=== PATIENT | male | born 1995 | race Caucasian/White ===

== ENCOUNTER 2017-03-30 05:23 | Inpatient (IN) | payer OTHER ==
[2017-03-22 08:50] VITALS: Ht 190.5 cm; Wt 92.1 kg
--- NOTE | 2017-03-22 09:16 | PAT Medication Instructions ---
Service Date Mar 22, 2017. Current Home Medication List Clonazepam (Klonopin), 1 MG PO PRN Escitalopram (Lexapro), 10 MG PO QPM Ibuprofen Tab (Advil), 400 MG PO PRN [Promethazine], 10-20 MG PO PRN Medication Instructions For Your Scheduled Surgery - Check with surgeon for instructions: Ibuprofen Tab (Advil), 400 MG PO PRN - Take the following medications the morning of surgery with a sip of water: [Promethazine], 10-20 MG PO PRN (if needed) Clonazepam (Klonopin), 1 MG PO PRN (if needed) - Take the following medications as scheduled the night before surgery: [Promethazine], 10-20 MG PO PRN (if needed) Clonazepam (Klonopin), 1 MG PO PRN (if needed) Escitalopram (Lexapro), 10 MG PO QPM If you have any questions please call us at [phone] or [phone] or [phone]
[2017-03-22 10:02] LABS: BASO % 0.4 %; BASO ABS # 0.02 K/uL (0-0.2); COMPLETE YES; EOS % 1.6 %; HEMATOCRIT 44.7 % (42-52); IG% 0.2 %; LYMPH % 35.6 %; LYMPH ABS # 1.78 K/uL (1.2-3.4); MEAN CELL VOLUME 87.3 fL (80-100); MEAN CORPUSCULAR HEMOGLOBIN 30.7 pg (25-34); MEAN CORPUSCULAR HGB CONC 35.1 g/dl (32-36); MEAN PLATELET VOLUME 11.5 fL (7.4-10.4); NEUT % 53.2 %; PLATELET COUNT 194 K/uL (130-400); RED BLOOD COUNT 5.12 M/uL (4.7-6.1)
[~2017-03-30] VITALS: Ht 190.5 cm; Wt 92.1 kg
[2017-03-30] VITALS (8 sets, daily range): BP systolic 131–161; BP diastolic 72–91; PULSE 66–98; TEMP 36.3–36.9; O2SAT 95–99
[~2017-03-30 05:23] MED LIST: CLON1TAB3 PO; ESCI10TA17 PO; IBUP-103 PO; PROMETHAZINE PO
[2017-03-30] MEDS ORDERED: LACTATED RINGER'S 1000ML 1,000 ML IV SCH (06:00)
[2017-03-30] MEDS ORDERED: DEXAMETHASONE INJ 8 MG in SYRINGE 0 ML IV SCH (06:00)
[2017-03-30] MEDS ORDERED: CEFAZOLIN 2000 MG/60 ML D5W IV SCH (06:00)
[2017-03-30] MEDS ORDERED: MIDAZOLAM HCL 1 MG/ML 2ML VIAL ONE (06:39)
[2017-03-30] MEDS ORDERED: NEOSTIGMINE METHYLSULFATE 5 MG/5 ML SYR ONE (06:39)
[2017-03-30] MEDS ORDERED: PROPOFOL IV EMULSION 10 MG/ML 20 ML VIAL IV ONE ×2 (06:39→07:53)
[2017-03-30] MEDS ORDERED: FENTANYL CITRATE INJ 50 MCG/1 ML 2 ML VIAL ONE ×2 (06:39→08:47)
[2017-03-30] MEDS ORDERED: DEXAMETHASONE SOD INJ 4 MG/ML VIAL ONE ×2 (06:39→07:47)
[2017-03-30] MEDS ORDERED: LIDOCAINE HCL 2% 2 ML VIAL (20MG/ML) ONE (06:39)
[2017-03-30] MEDS ORDERED: ROCURONIUM BROMIDE 10 MG/ML 5 ML VIAL ONE (06:39)
[2017-03-30] MEDS ORDERED: GLYCOPYRROLATE INJ 0.2 MG/ML VIAL ONE ×2 (06:39→09:34)
[2017-03-30] MEDS ORDERED: ONDANSETRON INJ 2 MG/ML 2 ML VIAL ONE ×2 (06:39→09:39)
[2017-03-30] MEDS ORDERED: LIDOCAINE HCL 2% JELLY 30 ML TUBE EXT ONE (06:46)
[2017-03-30] MEDS ORDERED: OXYMETAZOLINE HCL 0.05% NA SPR 15 ML BTL ONE (06:46)
--- NOTE | 2017-03-30 06:46 | History & Physical Bridge Note ---
H&P Re-Evaluation Bridge Note: I have examined the patient, reviewed the History & Physical and in the interval since the performance of the History & Physical I have noted the following changes of clinical significance: No changes noted
[2017-03-30] MEDS ORDERED: TRIAMCINOLONE ACET 0.1% OINT 15 GM TUBE ONE (07:00)
[2017-03-30] MEDS ORDERED: BUPIVACAINE/EPINEPHRINE 0.5% 1:200,000 1.8 ML CARP ONE (07:01)
[2017-03-30] MEDS ORDERED: CHLORHEXIDINE GLUCONATE 0.12% 480 ML MT PRN (07:15)
[2017-03-30] MEDS ORDERED: LABETALOL HCL IV 5 MG/ML 20ML IV ONE (07:53)
[2017-03-30] MEDS ORDERED: HYDROmorphone INJ 1 MG/ML SYR IV PRN (08:15)
[2017-03-30] MEDS ORDERED: ATROPINE SULFATE 0.1 MG/ML 5ML SYR IV PRN (08:15)
[2017-03-30] MEDS ORDERED: EpHEDrine SULFATE INJ 50 MG/ML AMP IV PRN (08:15)
[2017-03-30] MEDS ORDERED: ONDANSETRON INJ 2 MG/ML 2 ML VIAL IV PRN ×2 (08:15→10:00)
--- NOTE | 2017-03-30 09:48 | [facility] Operative Report ---
Operative Report Operative Date Mar 30, 2017. Pre-Operative Diagnosis Mandibular retrognathia, with substantial functional compromise Post-Operative Diagnosis Same Procedure(s) Performed Mandibular sagittal split osteotomy, bilateral, with rigid internal fixation Surgeon Dr. Dyson Embroidery Assistant Surgeon(s) Tg D[place] Estimated Blood Loss 50 ml Findings Intact nerves bilaterally, osteotomy stable in the advanced position with a good occlusion. Specimens none Drains None Anesthesia GNETA Complication(s) None Disposition Recovery Room / PACU Indications Be is a 21 year old with a mandibular retrognathia that causes significant functional compromise. The indicated surgical correction is a mandibular advancement. Description of Procedure A time out was taken and a sterile prep and drape completed. The oral cavity was irrigated with Peridex and local anesthesia administered as a bilateral inferior nerve block. A typical posterior lower buccal sulcus incision was created on the left side with the cautery and the ramus of the mandible carefully exposed. The classic sagittal osteotomy was created with the saw blade taking care to avoid injury to the inferior alveolar nerve. With this completed the site was packed and the right side approached with the same incision design and the same classic osteotomy. I then completed the right osteotomy. This was a favorable osteotomy with an intact nerve. I then completed the left osteotomy which also was a favorable osteotomy with an intact nerve. The pre-fabricated splint was then placed the the patient placed into intermaxillary fixation in the planned class I occlusion. The condylar segments were then positioned with the condyles passive in the fossae and the bicortical screws were placed bilaterally. The stability of the fixation was ensured, the occlusion verified. The incisions were irriaged and closed with 4- 0 gut. The skin incisions were closed with a single 6-0 nylon. A compression dressing was applied and the patient was turned over to anesthesia where he was extubated and transferred to the PACU in stable condition. At the end of the procedure all counts were correct. I attest to the content of the Intraoperative Record and any orders documented therein. Any exceptions are noted below.
[2017-03-30] MEDS ORDERED: ACETAMINOPHEN/HYDROCODONE ELIX 15 ML/CUP UDP PO PRN (10:00)
[2017-03-30] MEDS ORDERED: MoRPHine SULFATE 4 MG/ML 1 ML CARP\\VIAL IV PRN (10:00)
[2017-03-30] MEDS ORDERED: ACETAMINOPHEN SOLN 650MG/20.3 ML UDC PO PRN (10:00)
[2017-03-30] MEDS ORDERED: CLONAZEPAM 1 MG TAB PO PRN (10:00)
[2017-03-30] MEDS ORDERED: MoRPHine SULFATE 2 MG/ML CARP IV PRN (10:00)
[2017-03-30] MEDS: FENTANYL CITRATE INJ 50 MCG/1 ML 2 ML VIAL IV PRN ×2 (10:25→10:30)
[2017-03-30] MEDS ORDERED: DiphenhydrAMINE HCL 50 MG/ML VIAL ONE (10:34)
[2017-03-30] MEDS ORDERED: NURSING VERBAL MED ORDER ONE (10:45)
--- NOTE | 2017-03-30 11:09 | Anesthesiology Progress Note ---
Anesthesia Post Op Note Date & Time Mar 30, 2017 at 11:06 Vital Signs Pain Intensity: 0 Vital Signs Past 12 Hours Date Time Temp Pulse Resp B/P (MAP) Pulse Ox O2 Delivery O2 Flow Rate FiO2 03/30/17 10:55 73 16 150/95 98 Nasal Cannula 3 03/30/17 10:40 36.8 78 16 156/87 99 Nasal Cannula 3 03/30/17 10:30 75 16 152/92 99 Nasal Cannula 3 03/30/17 10:20 79 16 153/89 99 Nasal Cannula 4 03/30/17 10:10 83 16 154/78 96 Nasal Cannula 4 03/30/17 10:04 37.0 83 16 149/87 97 Oxymask 10 03/30/17 05:47 36.7 66 16 147/79 96 Room Air Notes Mental Status: alert / awake / arousable, participated in evaluation Pt Amnestic to Procedure: Yes Nausea / Vomiting: adequately controlled Pain: adequately controlled Airway Patency, RR, SpO2: stable & adequate BP & HR: stable & adequate Hydration State: stable & adequate Anesthetic Complications: no major complications apparent Ciro is awake, conversant and following commands. He was meeting PACU discharge criteria but I noticed a mild blotchy rash on his chest and arms. He denied it being itchy and also denied shortness of breath. Breath sounds were clear. A similar rash was noted after induction in OR but this faded shortly afterwards. He was treated with decadron in OR but no benadryl as the rash went away. In PACU, I decided to give him 12.5mg IV benadryl x1 and rash appeared to fade. He is otherwise doing well and ok for transfer to floor. PACU nurse tried to reach attending surgeon and left a message so we can make him aware of the situation. Floor nurse will be informed of situation to ensure rash continues to improve.
[2017-03-30] MEDS: D5W AND 1/2NSS + 20MEQ KCL 1,000 ML IV SCH ×2 (12:34→20:39)
[2017-03-30] MEDS: KETOROLAC TROMETHAMINE 30 MG/ML VIAL IV. SCH ×3 (12:35→23:31)
--- NOTE | 2017-03-30 19:20 | Progress Note ---
Progress Note Date of Service Mar 30, 2017. Progress Note Post-op check Doing well after surgery. In the PACU a blotchy "rash" was seen but this has cleared and there is no itching or hives. AF VSS Tolerating PO clears No nausea Pain requiring IV meds to manage but that is effective. Has been ambulating and voided Sensation is starting to return in the lower lip Incisions intact Occlusion looks good Impression - stable post op Pain control and PO intake a priority for over-night Anticipate D/C to home in the AM
--- NOTE | 2017-03-30 19:26 | Discharge Instructions ---
Discharge Instructions Date of Service Mar 30, 2017. Admission Reason for Admission: Mandibular Retrognathism Discharge Discharge Diagnosis / Problem: Same - after surgery for mandibular advancement Discharge Goals Goal(s): Decrease discomfort, Improve function, Improve nutritional status Activity Recommendations Activity Limitations: as noted below Lifting Limitations: gradually increase as tolerated Exercise/Sports Limitations: gradually increase as tolerated Shower/Bathe: no limitations Driving or Machine Use: Resume driving when off of prescription pain medication . Instructions / Follow-Up Instructions / Follow-Up Follow up with Dr. Dyson as scheduled next week Medications - Take the Antibiotics as prescribed (already have the Rx), take the pain meds as needed, transition from the Hydrocodone to Ibuprofen as soon as you can. Liquid Diet! Rinse mouth with saline 3-4 times a day after drinking full liquids. OK to stop Ice 24 hours after surgery In a few days, warm compresses to the jaw line will help with stiffness Gently brush teeth, espically uppers and in the front, be very gentle in the lower back areas. Current Hospital Diet Patient's current hospital diet: Full Liquid Diet Discharge Diet Recommended Diet: Full Liquid Diet Procedures Procedures Performed: Mandibular sagittal split osteotomy Pending Studies Studies pending at discharge: no Work Instructions Return To Work: after follow-up Lifting Limitations: no more than 20 pounds Medical Emergencies . Who to Call and When: Medical Emergencies: If at any time you feel your situation is an emergency, please call 911 immediately. . Non-Emergent Contact Non-Emergency issues call your: Surgeon Contact Number: [phone] Call Non-Emergent contact if: temperature is above 101, your pain is not controlled, wound has increased redness . "Provider Documentation" section prepared by Kb Dyson. . VTE Core Measure Inpt VTE Proph given/why not?: SCD's
[2017-03-30] MEDS: CHLORHEXIDINE GLUCONATE 0.12% 480 ML MT SCH (20:39)
[2017-03-30] MEDS ORDERED: ESCITALOPRAM OXALATE 10 MG TAB PO SCH (21:00)
[2017-03-30] MEDS: ACETAMINOPHEN/HYDROCODONE ELIX 15 ML/CUP UDP PO PRN (23:32)
[2017-03-31 03:43] VITALS: BP 145/74; PULSE 83; TEMP 36.5; O2SAT 96
[2017-03-31] MEDS: D5W AND 1/2NSS + 20MEQ KCL 1,000 ML IV SCH (03:46)
[2017-03-31] MEDS: KETOROLAC TROMETHAMINE 30 MG/ML VIAL IV. SCH (05:23)
[2017-03-31 07:17] VITALS: BP 125/66; PULSE 76; TEMP 36.4; O2SAT 99
[2017-03-31] MEDS: ACETAMINOPHEN/HYDROCODONE ELIX 15 ML/CUP UDP PO PRN (07:39)
--- NOTE | 2017-03-31 08:12 | Anesthesiology Progress Note ---
Anesthesia Post Op Note Date & Time Mar 31, 2017 at 08:11 Vital Signs Vital Signs Past 12 Hours Date Time Temp Pulse Resp B/P (MAP) Pulse Ox O2 Delivery O2 Flow Rate FiO2 03/31/17 07:17 36.4 76 16 125/66 (85) 99 Room Air 03/31/17 03:43 36.5 83 16 145/74 (97) 96 Room Air 03/30/17 23:35 Room Air 03/30/17 22:45 36.9 85 16 142/72 (95) 98 Room Air Notes Mental Status: alert / awake / arousable, participated in evaluation Pt Amnestic to Procedure: Yes Nausea / Vomiting: adequately controlled Pain: adequately controlled Airway Patency, RR, SpO2: stable & adequate BP & HR: stable & adequate Hydration State: stable & adequate Anesthetic Complications: no major complications apparent
[2017-03-31] MEDS: CHLORHEXIDINE GLUCONATE 0.12% 480 ML MT SCH (09:14)
[2017-03-31 09:54] VITALS: BP 125/66; PULSE 76; TEMP 36.4; O2SAT 99
--- NOTE | 2017-04-02 10:22 | Discharge Summary ---
Discharge Summary Date of Service Mar 31, 2017. Patient admitted on Wednesday for mandibular advancement surgery. Please refer to the history and physical as well as the op report. His surgery was uncomplicated. He was admitted to the surgical floor were he was observed overnight. His po intake was excellent, voided without difficulty. Pain control with IV meds over night and then transitioned to PO meds. On the morning of 03/31 he was stable for discharge to home. Please see the discharge summary.
== END 2017-03-31 10:22 | disposition home or self-care (01) | DRG 132 ==
LOC: C.ACU 05:23 → C.MSN 05:45 → ENRESERV 10:36
PROVIDERS: ADMIT Dentist Oral and Maxillofacial Pathology; ATTEND Dentist Oral and Maxillofacial Pathology
PROC: 0NQT0ZZ Repair Right Mandible, Open Approach (ICD-10-PCS; principal; 2017-03-30 07:15)
PROC: 0NQV0ZZ Repair Left Mandible, Open Approach (ICD-10-PCS; principal; 2017-03-30 07:15)
DX: M26.19 Other specified anomalies of jaw-cranial base relationship (principal); R21 Rash and other nonspecific skin eruption; Z79.899 Other long term (current) drug therapy